=== PATIENT | female | born 1980 | race African-American/Black ===

== ENCOUNTER 2019-02-27 16:55 | Emergency (ER) | payer OTHER ==
[~2019-02-27] VITALS: Ht 180.3 cm; Wt 90.7 kg
[2019-02-27 17:11] VITALS: BP 152/85
== END 2019-02-27 17:30 ==
LOC: ER 17:05
DX: Z02.89 Encounter for other administrative examinations (principal)

== ENCOUNTER 2019-03-30 10:08 | Emergency (ER) | payer MEDICAID, OTHER ==
[~2019-03-30] VITALS: Ht 180.3 cm; Wt 90.7 kg
[2019-03-30 10:26] VITALS: BP 123/73
[2019-03-30 13:36] LABS: APPEARANCE,URINE Clear (CLEAR); BILIRUBIN,URINE Negative (NEGATIVE); BLOOD, URINE Small Ery/uL (NEGATIVE); COLOR,URINE Yellow (YELLOW); KETONES,URINE Negative (NEGATIVE); LEUKOCYTE ESTERASE ,URINE Trace (NEGATIVE); NITRITE, URINE Negative (NEGATIVE); PH,URINE 6.5 (5.0-8.0); PROTEIN,URINE Trace mg/dl (NEGATIVE); UGLUCOSE Negative (NEGATIVE)
[2019-03-30 13:39] LABS: BACTERIA,URINE Few /HPF (None Seen); SQUAMOUS EPITHELIAL CELL,UR Few /HPF (None Seen)
--- NOTE | 2019-03-30 14:07 | NUR ---
PT LEFT WITHOUT ACI / DISCHARGE INSTRUCTIONS AND RX. B DIONNE FOSTER IS AWARE.
== END 2019-03-30 14:07 | disposition home or self-care (01) ==
LOC: ER 10:12
DX: S30.854A Superficial foreign body of vagina and vulva, initial encounter (principal); W45.8XXA Other foreign body or object entering through skin, initial encounter; Y93.89 Activity, other specified; Y92.89 Other specified places as the place of occurrence of the external cause; Y99.8 Other external cause status
CPT/HCPCS: 76856; 81001; 84703; 87491; 87591; 99284; A6402; 81000-TC